=== PATIENT | female | born 1960 | race Caucasian/White ===

== ENCOUNTER 2024-10-10 11:55 | Inpatient (IN) | payer BC ==
[2024-10-10 12:31] LABS: #Basophils 0.04 10x3/uL (0.0-0.2); #Eosinophils Less than 0.03 10x3/uL (0.0-0.7); %Basophils 0.6 % (0.0-1.0); %Eosinophils 0.3 % (0.0-10.0); %Lymphocytes 18.6 % (21.0-51.0); %Monocytes 7.2 % (0.0-10.0); %Neutrophils 72.9 % (42.0-75.0); Hematocrit 43.8 % (36.0-47.0); Hemoglobin 14.4 g/dL (12.0-16.0); Mean Corpuscular HGB CONC 32.9 g/dL (32.0-36.0); Mean Corpuscular Hemoglobin 28.9 pg (27.0-31.0); Mean Platelet Volume 8.5 fL (7.4-10.4); Platelet Count 331 10x3/uL (130-400); RBC Distribution Width 12.7 % (11.5-14.5); Red Blood Cell (RBC) Count 4.98 mill/uL (4.20-5.40)
[2024-10-10 12:49] LABS: ALT (SGPT) 12 U/L (8-55); AST (SGOT) 15 U/L (5-34); Albumin 3.9 g/dL (3.4-4.8); Alkaline Phosphatase 121 U/L (40-110); Anion Gap 21 mmol/L (10-20); BUN (Urea Nitrogen) 19 mg/dL (9.8-20.1); Bilirubin, Total 0.7 mg/dL (0.2-1.2); Calc. Creatinine Clearance 0 mL/min (70-130); Carbon Dioxide 22 mmol/L (23-31); Chloride 95 mmol/L (98-107); Estimated GFR 46; Globulin 4.6 g/dL (2.4-3.5); Glucose 302 mg/dL (80-115); Lipase 30 U/L (8-78); Potassium 4.6 mmol/L (3.5-5.1); Protein, Total 8.5 g/dL (5.8-8.1); Sodium 133 mmol/L (136-145)
[2024-10-10] MEDS ORDERED: Nitroglycerin 2% Ointment 1 INCH/1 GM Packet ONE (14:13)
[2024-10-10] MEDS ORDERED: Diazepam 5 MG TAB ONE (14:13)
[2024-10-10] MEDS ORDERED: Aspirin Chewable 81 MG TAB ONE (14:14)
[2024-10-10] MEDS ORDERED: Dextrose 50% Abboject 50 ML SYRINGE SLOW IVP PRN (15:00)
[2024-10-10] MEDS ORDERED: Acetaminophen 325 MG TAB PO PRN (15:00)
[2024-10-10] MEDS ORDERED: Glucagon 1 MG/ML KIT IM PRN (15:00)
[2024-10-10] MEDS ORDERED: Ondansetron PF 4 MG/2 ML Vial IVP PRN (15:00)
[2024-10-10] MEDS ORDERED: Insulin Lispro 100 UNIT/ML 10 ML VIAL SC PRN (15:00)
[2024-10-10] MEDS ORDERED: Ondansetron ODT 4 MG TAB PO PRN (15:00)
[2024-10-10] MEDS ORDERED: Acetaminophen 650 MG Suppository PR PRN (15:00)
[2024-10-10] MEDS ORDERED: Senokot S 8.6-50 MG TAB PO PRN (15:00)
[2024-10-10] MEDS ORDERED: Dextrose 5% in Water 1,000 ML IV PRN (15:00)
[2024-10-10 16:22] LABS: Magnesium 1.8 mg/dL (1.6-2.6)
[2024-10-10 17:19] LABS: Troponin I 0.015 ng/mL (< 0.028)
[2024-10-10 17:24] VITALS: BMI 47.3
[2024-10-10] MEDS: Insulin Lispro 100 UNIT/ML 10 ML VIAL SC PRN (17:32)
[2024-10-10] MEDS: Pantoprazole 40 MG VIAL IVP SCH (17:32)
[2024-10-10] MEDS: Magnesium 2 GM/50 ML(in water) 2 GM in Premix 1 BAG IVPB SCH (17:33)
[2024-10-10 18:59] LABS: Troponin I 0.015 ng/mL (< 0.028)
[2024-10-10] MEDS: Metoprolol Tartrate 25 MG TAB PO SCH (21:17)
[2024-10-10] MEDS: Apixaban 5 MG TAB PO SCH (21:18)
[2024-10-10] MEDS: ALPRAZolam 0.5 MG TAB PO PRN (21:18)
[2024-10-10] MEDS: Nystatin Powder 15 GM BOT TOP SCH (21:22)
[2024-10-11 04:51] LABS: #Basophils 0.04 10x3/uL (0.0-0.2); %Basophils 0.6 % (0.0-1.0); %Eosinophils 0.8 % (0.0-10.0); %Lymphocytes 29.1 % (21.0-51.0); %Monocytes 10.2 % (0.0-10.0); %Neutrophils 58.7 % (42.0-75.0); Hematocrit 38.6 % (36.0-47.0); Hemoglobin 12.5 g/dL (12.0-16.0); Mean Corpuscular HGB CONC 32.4 g/dL (32.0-36.0); Mean Corpuscular Hemoglobin 29.1 pg (27.0-31.0); Mean Corpuscular Volume 89.8 fL (78.0-98.0); Mean Platelet Volume 8.8 fL (7.4-10.4); Platelet Count 267 10x3/uL (130-400); RBC Distribution Width 12.9 % (11.5-14.5)
[2024-10-11 05:17] LABS: Anion Gap 13 mmol/L (10-20); BUN (Urea Nitrogen) 20 mg/dL (9.8-20.1); Calc. Creatinine Clearance 112 mL/min (70-130); Calcium 8.8 mg/dL (7.8-10.44); Carbon Dioxide 25 mmol/L (23-31); Chloride 102 mmol/L (98-107); Estimated GFR 50; Glucose 243 mg/dL (80-115); Potassium 3.9 mmol/L (3.5-5.1); Sodium 136 mmol/L (136-145)
[2024-10-11] MEDS: Sertraline 100 MG TAB PO SCH (08:51)
[2024-10-11] MEDS: Aspirin 81 mg Enteric Coated Tablet PO SCH (08:51)
[2024-10-11] MEDS: Pantoprazole DR 40 MG TAB PO SCH (08:51)
[2024-10-11] MEDS ORDERED: Regadenoson 0.4 MG/5 ML SYRINGE ONE (10:56)
[2024-10-11] MEDS: hydrOXYzine 25 MG TAB PO PRN (20:13)
[2024-10-11] MEDS: Atorvastatin Calcium 40 MG TAB PO SCH (20:14)
[2024-10-11] MEDS: Labetalol HCl 100 MG/20 ML VIAL SLOW IVP SCH (22:01)
[2024-10-11] MEDS: Nitroglycerin 0.4 MG TAB (25 Tab Bottle) SL PRN (23:22)
[2024-10-12 05:57] LABS: #Basophils 0.06 10x3/uL (0.0-0.2); %Basophils 0.9 % (0.0-1.0); %Eosinophils 0.9 % (0.0-10.0); %Monocytes 10.1 % (0.0-10.0); %Neutrophils 55.8 % (42.0-75.0); Hematocrit 41.2 % (36.0-47.0); Hemoglobin 13.1 g/dL (12.0-16.0); Mean Corpuscular HGB CONC 31.8 g/dL (32.0-36.0); Mean Corpuscular Hemoglobin 28.8 pg (27.0-31.0); Mean Corpuscular Volume 90.5 fL (78.0-98.0); Mean Platelet Volume 8.6 fL (7.4-10.4); Platelet Count 267 10x3/uL (130-400); Red Blood Cell (RBC) Count 4.55 mill/uL (4.20-5.40)
[2024-10-12 06:13] LABS: Anion Gap 14 mmol/L (10-20); BUN (Urea Nitrogen) 20 mg/dL (9.8-20.1); Calc. Creatinine Clearance 119 mL/min (70-130); Calcium 9.2 mg/dL (7.8-10.44); Carbon Dioxide 25 mmol/L (23-31); Chloride 102 mmol/L (98-107); Estimated GFR 54; Glucose 239 mg/dL (80-115); Magnesium 2.1 mg/dL (1.6-2.6); Potassium 3.8 mmol/L (3.5-5.1); Sodium 137 mmol/L (136-145)
[2024-10-12] MEDS: FLU (Fluarix Triv) TS24-25(6MOS UP)/PF 45 MCG/0.5 ML Syringe IM ONE (08:45)
[2024-10-12 15:53] VITALS: BP 141/63; TEMP 97.5
== END 2024-10-12 18:30 | disposition home or self-care (01) | DRG 313 ==
LOC: ERS 11:55 → OBS 15:52 → OBSVTOIN 10-12 14:01
PROVIDERS: ADMIT Internal Medicine; ATTEND Internal Medicine
DX: R07.89 Other chest pain (principal); I13.0 Hypertensive heart and chronic kidney disease with heart failure and stage 1 through stage 4 chronic kidney disease, or unspecified chronic kidney disease; Z68.42 Body mass index [BMI] 45.0-49.9, adult; I50.9 Heart failure, unspecified; I48.0 Paroxysmal atrial fibrillation; F41.9 Anxiety disorder, unspecified; E03.9 Hypothyroidism, unspecified; E78.5 Hyperlipidemia, unspecified; Z66 Do not resuscitate; N18.30 Chronic kidney disease, stage 3 unspecified; E66.01 Morbid (severe) obesity due to excess calories; E11.22 Type 2 diabetes mellitus with diabetic chronic kidney disease; Z98.890 Other specified postprocedural states
CPT/HCPCS: 36415; 36416; 70450; 71045; 78452; 80048; 80053; 83690; 83735; 83880; 84443; 84484; 85025; 93005; 93010; 93017; 96374; 96375; A9500; G0378; J1815; J2470; J2785; J3475; Q0162

== ENCOUNTER 2024-11-10 16:17 | Inpatient (IN) | payer BC ==
[2024-11-10] MEDS ORDERED: Metoprolol Tartrate 5 MG (5 mL) VIAL ONE ×2 (16:47→18:46)
[2024-11-10 16:54] LABS: #Basophils 0.04 10x3/uL (0.0-0.2); %Basophils 0.6 % (0.0-1.0); %Eosinophils 0.9 % (0.0-10.0); %Lymphocytes 18.8 % (21.0-51.0); %Monocytes 7.6 % (0.0-10.0); %Neutrophils 71.5 % (42.0-75.0); Hematocrit 38.1 % (36.0-47.0); Hemoglobin 12.4 g/dL (12.0-16.0); Mean Corpuscular HGB CONC 32.5 g/dL (32.0-36.0); Mean Corpuscular Hemoglobin 29.7 pg (27.0-31.0); Mean Corpuscular Volume 91.1 fL (78.0-98.0); Platelet Count 279 10x3/uL (130-400); RBC Distribution Width 14.2 % (11.5-14.5); Red Blood Cell (RBC) Count 4.18 mill/uL (4.20-5.40)
[2024-11-10 17:14] LABS: ALT (SGPT) 13 U/L (8-55); AST (SGOT) 10 U/L (5-34); Albumin 3.3 g/dL (3.4-4.8); Alkaline Phosphatase 108 U/L (40-110); Anion Gap 14 mmol/L (10-20); BUN (Urea Nitrogen) 17 mg/dL (9.8-20.1); Bilirubin, Total 0.4 mg/dL (0.2-1.2); Calc. Creatinine Clearance 0 mL/min (70-130); Calcium 8.9 mg/dL (7.8-10.44); Carbon Dioxide 27 mmol/L (23-31); Chloride 103 mmol/L (98-107); Estimated GFR 61; Globulin 3.5 g/dL (2.4-3.5); Glucose 248 mg/dL (80-115); Magnesium 1.9 mg/dL (1.6-2.6); Potassium 4.3 mmol/L (3.5-5.1); Protein, Total 6.8 g/dL (5.8-8.1); Sodium 140 mmol/L (136-145)
[2024-11-10 17:19] LABS: Troponin I Less than 0.010 ng/mL (< 0.028)
[2024-11-10 19:12] LABS: Bacteria/HPF None Seen HPF (None Seen); Bilirubin Negative (Negative); Blood, Urine Negative (Negative); CAUTI Indications for Culture Dysuria,urgency,freq; Clarity Clear (Clear); Glucose, Urine (Dipstick) 100 mg/dL (Negative); Ketone, Urine Negative (Negative); Leukocyte Negative Leu/uL (Negative); Nitrite Negative (Negative); Protein, Urine (Dipstick) 10 mg/dL (Neg-Trace); RBC/HPF 0-3 HPF (0-3); Specific Gravity, Urine 1.023 (1.002-1.036); Squamous Epithelial 0-3 HPF (0-3); Urobilinogen Normal mg/dL (Less than 2); WBC/HPF 0-3 HPF (0-3); pH, Urine 5.5 (5.0-9.0)
[2024-11-10 19:17] LABS: Urine Culture Reflex No No
[2024-11-10 19:40] LABS: Lactic Acid 2.03 mmol/L (0.5-2.2)
[2024-11-10] MEDS ORDERED: Ondansetron PF 4 MG/2 ML Vial IVP PRN (22:49)
[2024-11-10] MEDS ORDERED: Acetaminophen 325 MG TAB PO PRN (22:49)
[2024-11-10] MEDS ORDERED: Dextrose 50% Abboject 50 ML SYRINGE SLOW IVP PRN (22:56)
[2024-11-10] MEDS ORDERED: Insulin Lispro 100 UNIT/ML 10 ML VIAL SC PRN (22:56)
[2024-11-10] MEDS ORDERED: Dextrose 5% in Water 1,000 ML IV PRN (22:56)
[2024-11-10] MEDS ORDERED: Glucagon 1 MG/ML KIT IM PRN (22:56)
[2024-11-10] MEDS: ALPRAZolam 0.5 MG TAB PO PRN (23:30)
[2024-11-10] MEDS: Furosemide 20 MG (2 mL) VIAL SLOW IVP SCH (23:30)
[2024-11-10] MEDS: Apixaban 5 MG TAB PO SCH (23:30)
[2024-11-10] MEDS: Metoprolol Tartrate 25 MG TAB PO SCH (23:30)
[2024-11-11 00:43] VITALS: BMI 58.7
[2024-11-11] MEDS: Diltiazem HCl/D5W 125 MG in Premix 1 BAG IVPB SCH (02:36)
[2024-11-11] MEDS: Furosemide 20 MG (2 mL) VIAL SLOW IVP SCH (05:51)
[2024-11-11] MEDS: Insulin Lispro 100 UNIT/ML 10 ML VIAL SC PRN (05:56)
[2024-11-11 05:57] LABS: #Basophils 0.03 10x3/uL (0.0-0.2); %Basophils 0.4 % (0.0-1.0); %Eosinophils 0.9 % (0.0-10.0); %Lymphocytes 27.9 % (21.0-51.0); %Monocytes 8.5 % (0.0-10.0); Hematocrit 34.5 % (36.0-47.0); Mean Corpuscular HGB CONC 31.9 g/dL (32.0-36.0); Mean Corpuscular Hemoglobin 29.1 pg (27.0-31.0); Mean Corpuscular Volume 91.3 fL (78.0-98.0); Mean Platelet Volume 9.6 fL (7.4-10.4); Platelet Count 244 10x3/uL (130-400); RBC Distribution Width 14.3 % (11.5-14.5); Red Blood Cell (RBC) Count 3.78 mill/uL (4.20-5.40)
[2024-11-11 06:25] LABS: Anion Gap 12 mmol/L (10-20); BUN (Urea Nitrogen) 17 mg/dL (9.8-20.1); Calc. Creatinine Clearance 124 mL/min (70-130); Calcium 8.7 mg/dL (7.8-10.44); Carbon Dioxide 28 mmol/L (23-31); Chloride 101 mmol/L (98-107); Estimated GFR 50; Glucose 265 mg/dL (80-115); Magnesium 1.9 mg/dL (1.6-2.6); Potassium 3.7 mmol/L (3.5-5.1); Sodium 137 mmol/L (136-145)
[2024-11-11] MEDS: Metoprolol Tartrate 25 MG TAB PO SCH (08:54)
[2024-11-11] MEDS: Sertraline 100 MG TAB PO SCH (10:13)
[2024-11-11] MEDS: Apixaban 5 MG TAB PO SCH (10:13)
[2024-11-11] MEDS: Digoxin 0.5 MG/2 ML AMP SLOW IVP SCH ×2 (17:31→23:09)
[2024-11-11] MEDS: Atorvastatin Calcium 40 MG TAB PO SCH (20:38)
[2024-11-12 04:15] LABS: #Basophils 0.03 10x3/uL (0.0-0.2); %Basophils 0.4 % (0.0-1.0); %Eosinophils 1.3 % (0.0-10.0); %Lymphocytes 23.9 % (21.0-51.0); %Monocytes 7.6 % (0.0-10.0); %Neutrophils 66.4 % (42.0-75.0); Hematocrit 38.2 % (36.0-47.0); Hemoglobin 12.4 g/dL (12.0-16.0); Mean Corpuscular HGB CONC 32.5 g/dL (32.0-36.0); Mean Corpuscular Hemoglobin 29.4 pg (27.0-31.0); Mean Corpuscular Volume 90.5 fL (78.0-98.0); Mean Platelet Volume 9.1 fL (7.4-10.4); Platelet Count 278 10x3/uL (130-400); Red Blood Cell (RBC) Count 4.22 mill/uL (4.20-5.40)
[2024-11-12 04:35] LABS: Anion Gap 15 mmol/L (10-20); BUN (Urea Nitrogen) 15 mg/dL (9.8-20.1); Calc. Creatinine Clearance 156 mL/min (70-130); Calcium 8.7 mg/dL (7.8-10.44); Carbon Dioxide 26 mmol/L (23-31); Chloride 100 mmol/L (98-107); Estimated GFR 66; Glucose 193 mg/dL (80-115); Magnesium 1.9 mg/dL (1.6-2.6); Potassium 3.8 mmol/L (3.5-5.1); Sodium 137 mmol/L (136-145)
[2024-11-12] MEDS: Digoxin 0.5 MG/2 ML AMP SLOW IVP SCH (05:40)
[2024-11-12 11:59] VITALS: BP 136/68; TEMP 97.8
[2024-11-13] MEDS ORDERED: Digoxin 0.25 MG TAB PO SCH (09:00)
== END 2024-11-12 14:45 | disposition home or self-care (01) | DRG 308 ==
LOC: ERS 16:17 → 2NO 22:03 → OBSVTOIN 11-12 13:09
PROVIDERS: ADMIT Internal Medicine; ATTEND Internal Medicine
DX: I48.0 Paroxysmal atrial fibrillation (principal); I50.33 Acute on chronic diastolic (congestive) heart failure; I13.0 Hypertensive heart and chronic kidney disease with heart failure and stage 1 through stage 4 chronic kidney disease, or unspecified chronic kidney disease; Z68.43 Body mass index [BMI] 50.0-59.9, adult; E78.5 Hyperlipidemia, unspecified; E11.22 Type 2 diabetes mellitus with diabetic chronic kidney disease; N18.30 Chronic kidney disease, stage 3 unspecified; Z66 Do not resuscitate; F41.1 Generalized anxiety disorder; F32.A Depression, unspecified; E66.01 Morbid (severe) obesity due to excess calories
CPT/HCPCS: 36415; 36416; 71045; 80048; 80053; 81001; 83605; 83735; 83880; 84484; 85025; 93005; 96374; 96375; 96376; 97139; G0378; J1160; J1815; J1940

== ENCOUNTER 2025-10-31 12:38 | Outpatient (CLI) | payer BC | END 2025-10-31 12:39 | disposition home or self-care (01) | LOC: SCSRAD 12:38 | PROVIDERS: ATTEND Family Medicine | DX: S46.012D Strain of muscle(s) and tendon(s) of the rotator cuff of left shoulder, subsequent encounter (principal); M19.012 Primary osteoarthritis, left shoulder ==